=== PATIENT | male | born 1985 | race Caucasian/White ===

== ENCOUNTER 2016-10-22 03:40 | Emergency (ER) | payer OTHER ==
[~2016-10-22 03:40] MED LIST: NO MEDICATIONS
== END 2016-10-22 04:57 | disposition home or self-care (01) ==
LOC: CED 03:40
DX: L02.414 Cutaneous abscess of left upper limb (principal); L02.413 Cutaneous abscess of right upper limb; L03.113 Cellulitis of right upper limb; F41.9 Anxiety disorder, unspecified; K75.9 Inflammatory liver disease, unspecified; F17.210 Nicotine dependence, cigarettes, uncomplicated; Z90.49 Acquired absence of other specified parts of digestive tract; Z55.2 Failed school examinations
CPT/HCPCS: 10061; 90715; 99283